=== PATIENT | female | born 1985 | race Caucasian/White ===

== ENCOUNTER 2021-06-08 15:30 | Observation (INO) ==
[2021-06-08 22:14] LABS: Hematocrit 19.3 % (35.3-44.9); Hemoglobin 6.1 g/dL (11.5-15.4); Immature Granulocytes % 0.5 % (0-4); Lymphocytes % 11.5 %; Mean Corpuscular HGB Conc 31.6 g/dL (31.6-35.5); Mean Corpuscular Hemoglobin 26.1 pg (28.0-33.3); Mean Corpuscular Volume 82.5 fL (83.0-100.0); Mean Platelet Volume 10.1 fL (9.4-12.4); Monocytes % 3.5 %; Platelet Count 300 K/mcL (140-400); Red Blood Count 2.34 M/mcL (3.82-4.97); Red Cell Distribution Width 14.5 % (11.5-14.5); Segmented Neutrophils % 83.4 %; White Blood Count 9.6 K/mcL (4.3-11.1)
[2021-06-08 22:15] LABS: Basophils % 0.1 %; Eosinophils # 0.1 K/mcL (0.0-0.6); Lymphocytes # 1.1 K/mcL (0.6-4.6); Monocytes # 0.3 K/mcL (0.0-1.3)
[2021-06-08 22:24] LABS: INR 1.2; Prothrombin Time 13.7 Seconds (9.4-12.1)
[2021-06-08 22:26] LABS: Activated Partial Thrombo Time 38.2 Seconds (26.0-36.0)
[2021-06-08 22:37] LABS: Alanine Aminotransferase 4 Units/L (7-52); Albumin 3.9 g/dL (3.5-5.7); Albumin/Globulin Ratio 1.1 (1.1-2.2); Alkaline Phosphatase 83 Units/L (34-104); Aspartate Amino Transferase 8 Units/L (13-39); BUN/Creatinine Ratio 16 (6-26); Bilirubin,Total 0.3 mg/dL (0.3-1.0); Blood Urea Nitrogen 64 mg/dL (6-20); Calcium 8.5 mg/dL (8.6-10.3); Carbon Dioxide 18 mEq/L (23-29); Chloride 107 mEq/L (98-107); Globulin 3.5 g/dL (2.4-3.5); Glucose 105 mg/dL (70-105); Osmolality,Calculated 307 (280-300); Potassium 4.1 mEq/L (3.5-5.1); Sodium 139 mEq/L (136-145); Total Protein 7.4 g/dL (6.4-8.9); Troponin I < 0.03 ng/mL (< 0.04); eGFR For African Americans 15 (> 60); eGFR For Non-African Americans 12 (> 60)
[2021-06-08] MEDS ORDERED: 0.9 % Sodium Chloride 1,000 ML ONE (23:03)
[2021-06-08] MEDS ORDERED: Ondansetron 4 MG/2 ML VIAL ONE (23:51)
[2021-06-08] MEDS ORDERED: Ondansetron 4 MG/2 ML VIAL IVP ONE (23:52)
[2021-06-09] MEDS ORDERED: *HR* HYDROcodone/Acet 5/325 mg TABLET PO PRN (01:42)
[2021-06-09] MEDS ORDERED: Melatonin 3 MG TABLET PO PRN (01:42)
[2021-06-09] MEDS ORDERED: *HR* Promethazine 25 MG/ML VIAL IM PRN (01:42)
[2021-06-09] MEDS ORDERED: Naloxone 0.4 MG/ML INJ IVP PRN (01:42)
[2021-06-09] MEDS ORDERED: Acetaminophen 325 MG TABLET PO PRN (01:42)
[2021-06-09] MEDS ORDERED: Ondansetron 4 MG/2 ML VIAL IVP PRN (01:42)
[2021-06-09 04:38] LABS: Basophils % 0.4 %; Eosinophils # 0.1 K/mcL (0.0-0.6); Eosinophils % 0.6 %; Hematocrit 22.3 % (35.3-44.9); Hemoglobin 7.4 g/dL (11.5-15.4); Immature Granulocytes % 0.4 % (0-4); Lymphocytes # 0.9 K/mcL (0.6-4.6); Lymphocytes % 8.3 %; Mean Corpuscular HGB Conc 33.2 g/dL (31.6-35.5); Mean Corpuscular Hemoglobin 27.8 pg (28.0-33.3); Mean Corpuscular Volume 83.8 fL (83.0-100.0); Mean Platelet Volume 10.5 fL (9.4-12.4); Monocytes # 0.4 K/mcL (0.0-1.3); Monocytes % 3.4 %; Neutrophils # 9.8 K/mcL (1.6-8.9); Platelet Count 292 K/mcL (140-400); Red Blood Count 2.66 M/mcL (3.82-4.97); Red Cell Distribution Width 14.6 % (11.5-14.5); Segmented Neutrophils % 86.9 %; White Blood Count 11.3 K/mcL (4.3-11.1)
[2021-06-09 04:56] LABS: Calcium 8.5 mg/dL (8.6-10.3); Potassium 3.8 mEq/L (3.5-5.1)
[2021-06-09 05:03] LABS: INR 1.2; Prothrombin Time 13.4 Seconds (9.4-12.1)
[2021-06-09] MEDS ORDERED: hydrALAZINE 25 MG TABLET PO ONE (05:12)
[2021-06-09 05:17] VITALS: BP 175/110; PULSE 97; TEMP 98.3; O2SAT 99
== END 2021-06-09 05:35 | disposition home or self-care (01) ==
LOC: EMEROOARM 15:30 → 3ANU 15:30
PROVIDERS: ADMIT Internal Medicine; ATTEND Internal Medicine

== ENCOUNTER 2021-07-28 16:07 | Inpatient (IN) ==
[2021-07-28 22:59] LABS: Basophils % 0.2 %; Eosinophils % 0.4 %; Hematocrit 28.4 % (35.3-44.9); Immature Granulocytes % 1.3 % (0-4); Lymphocytes # 0.8 K/mcL (0.6-4.6); Lymphocytes % 8.2 %; Mean Corpuscular HGB Conc 31.7 g/dL (31.6-35.5); Mean Corpuscular Volume 85.3 fL (83.0-100.0); Monocytes # 0.4 K/mcL (0.0-1.3); Monocytes % 3.7 %; Neutrophils # 8.1 K/mcL (1.6-8.9); Platelet Count 272 K/mcL (140-400); Red Blood Count 3.33 M/mcL (3.82-4.97); Red Cell Distribution Width 14.9 % (11.5-14.5); Segmented Neutrophils % 86.2 %; White Blood Count 9.4 K/mcL (4.3-11.1)
[2021-07-29 00:28] LABS: Alanine Aminotransferase 5 Units/L (7-52); Albumin 4.4 g/dL (3.5-5.7); Albumin/Globulin Ratio 1.3 (1.1-2.2); Alkaline Phosphatase 77 Units/L (34-104); Aspartate Amino Transferase 14 Units/L (13-39); BUN/Creatinine Ratio 19 (6-26); Bilirubin,Indirect 0.3 mg/dL (0.0-1.0); Bilirubin,Total 0.3 mg/dL (0.3-1.0); Blood Urea Nitrogen 107 mg/dL (6-20); Carbon Dioxide 20 mEq/L (23-29); Chloride 102 mEq/L (98-107); Globulin 3.3 g/dL (2.4-3.5); Glucose 91 mg/dL (70-105); Lipase 54 Units/L (11-82); Osmolality,Calculated 325 (280-300); Potassium 5.1 mEq/L (3.5-5.1); Sodium 141 mEq/L (136-145); Total Protein 7.7 g/dL (6.4-8.9); Troponin I < 0.03 ng/mL (< 0.04); eGFR For African Americans 10 (> 60); eGFR For Non-African Americans 8 (> 60)
[2021-07-29] MEDS ORDERED: 0.9 % Sodium Chloride 1,000 ML IV ONE (00:36)
[2021-07-29 01:19] LABS: Adenovirus Not Detected (Not Detect); Coronavirus 229E Not Detected (Not Detect); Coronavirus HKU1 Not Detected (Not Detect); Coronavirus NL63 Not Detected (Not Detect); Coronavirus OC43 Not Detected (Not Detect)
[2021-07-29 01:21] LABS: Bordetella Pertussis Not Detected (Not Detect); Chlamydophila pneumoniae Not Detected (Not Detect); Human Metapneumovirus Not Detected (Not Detect); Human Rhinovirus/Enterovirus Not Detected (Not Detect); Influenza A Subtype 2009 H1 Not Detected (Not Detect); Influenza B Not Detected (Not Detect); Mycoplasma pneumoniae Not Detected (Not Detect); Parainfluenza Virus 1 Not Detected (Not Detect); Parainfluenza Virus 2 Not Detected (Not Detect); Parainfluenza Virus 3 Not Detected (Not Detect); Parainfluenza Virus 4 Not Detected (Not Detect); Respiratory Syncytial Virus Not Detected (Not Detect); SARS-CoV-2 DETECTED (Not Detect)
[2021-07-29] MEDS ORDERED: Naloxone 0.4 MG/ML INJ IVP PRN (03:46)
[2021-07-29 05:21] LABS: Basophils % 0.3 %; Eosinophils % 0.4 %; Immature Granulocytes % 1.2 % (0-4); Lymphocytes % 14.6 %; Mean Corpuscular HGB Conc 31.7 g/dL (31.6-35.5); Mean Corpuscular Hemoglobin 27.5 pg (28.0-33.3); Mean Corpuscular Volume 86.8 fL (83.0-100.0); Monocytes # 0.3 K/mcL (0.0-1.3); Monocytes % 4.5 %; Neutrophils # 5.3 K/mcL (1.6-8.9); Platelet Count 223 K/mcL (140-400); Red Blood Count 2.65 M/mcL (3.82-4.97); Red Cell Distribution Width 14.9 % (11.5-14.5); White Blood Count 6.7 K/mcL (4.3-11.1)
[2021-07-29 05:25] LABS: Hemoglobin 7.3 g/dL (11.5-15.4)
[2021-07-29 05:58] LABS: Alanine Aminotransferase 4 Units/L (7-52); Albumin 3.5 g/dL (3.5-5.7); Albumin/Globulin Ratio 1.3 (1.1-2.2); Alkaline Phosphatase 61 Units/L (34-104); Aspartate Amino Transferase 9 Units/L (13-39); BUN/Creatinine Ratio 19 (6-26); Bilirubin,Total 0.2 mg/dL (0.3-1.0); Blood Urea Nitrogen 102 mg/dL (6-20); Calcium 7.9 mg/dL (8.6-10.3); Carbon Dioxide 18 mEq/L (23-29); Chloride 104 mEq/L (98-107); Globulin 2.8 g/dL (2.4-3.5); Glucose 83 mg/dL (70-105); Magnesium 1.5 mg/dL (1.6-2.6); Osmolality,Calculated 319 (280-300); Phosphorous 5.8 mg/dL (2.7-4.5); Potassium 4.5 mEq/L (3.5-5.1); Sodium 139 mEq/L (136-145); Total Protein 6.3 g/dL (6.4-8.9); Troponin I < 0.03 ng/mL (< 0.04); eGFR For African Americans 11 (> 60); eGFR For Non-African Americans 9 (> 60)
[2021-07-29] MEDS: Ondansetron 4 MG/2 ML VIAL IVP PRN (07:28)
[2021-07-29] MEDS ORDERED: Albuterol 2.5 MG/3 ML NEBULIZER IH PRN (07:41)
[2021-07-29] MEDS ORDERED: Sodium Bicarbonate 75 MEQ in 0.45 % Sodium Chloride 1,000 ML IVC SCH (07:45)
[2021-07-29 11:04] LABS: Hematocrit 24.4 % (35.3-44.9); Hemoglobin 7.5 g/dL (11.5-15.4); Mean Corpuscular HGB Conc 30.7 g/dL (31.6-35.5); Mean Corpuscular Hemoglobin 26.7 pg (28.0-33.3); Mean Corpuscular Volume 86.8 fL (83.0-100.0); Mean Platelet Volume 9.6 fL (9.4-12.4); Platelet Count 213 K/mcL (140-400); Red Blood Count 2.81 M/mcL (3.82-4.97); White Blood Count 6.9 K/mcL (4.3-11.1)
[2021-07-29] MEDS: Ipratropium 1 PUFF INHALER IH SCH ×5 (11:15→23:40)
[2021-07-29 16:45] LABS: Hepatitis B Surface Antibody < 3.10 mIU/mL
[2021-07-29 16:56] LABS: Hepatitis B Surface Antigen Nonreactive (Nonreactive)
[2021-07-29] MEDS: *HR* Heparin 5,000 UNIT/ML VIAL SQ SCH (17:13)
[2021-07-29] MEDS: mycophenolate mofetiL 250 MG CAPSULE PO SCH (20:14)
[2021-07-29] MEDS: Acetaminophen 325 MG TABLET PO PRN (20:22)
[2021-07-29] MEDS: hydrOXYzine pamoate 25 MG CAPSULE PO PRN (21:17)
[2021-07-30] MEDS: Ondansetron 4 MG/2 ML VIAL IVP PRN ×2 (01:51→14:18)
[2021-07-30] MEDS: hydrOXYzine pamoate 25 MG CAPSULE PO PRN (02:51)
[2021-07-30] MEDS: Melatonin 3 MG TABLET PO PRN (02:51)
[2021-07-30] MEDS: Ipratropium 1 PUFF INHALER IH SCH ×4 (04:11→11:06)
[2021-07-30] MEDS ORDERED: *HR* Promethazine 25 MG/ML VIAL IM ONE (04:12)
[2021-07-30 04:15] LABS: Basophils % 0.2 %; Eosinophils # 0.1 K/mcL (0.0-0.6); Eosinophils % 0.4 %; Hematocrit 25.1 % (35.3-44.9); Hemoglobin 7.8 g/dL (11.5-15.4); Lymphocytes # 1.1 K/mcL (0.6-4.6); Lymphocytes % 8.9 %; Mean Corpuscular HGB Conc 31.1 g/dL (31.6-35.5); Mean Corpuscular Hemoglobin 26.9 pg (28.0-33.3); Mean Corpuscular Volume 86.6 fL (83.0-100.0); Mean Platelet Volume 9.8 fL (9.4-12.4); Monocytes # 0.4 K/mcL (0.0-1.3); Monocytes % 3.1 %; Platelet Count 250 K/mcL (140-400); Segmented Neutrophils % 86.4 %
[2021-07-30 04:19] LABS: Neutrophils # 10.5 K/mcL (1.6-8.9); White Blood Count 12.1 K/mcL (4.3-11.1)
[2021-07-30 04:39] LABS: Calcium 8.3 mg/dL (8.6-10.3); Magnesium 2.3 mg/dL (1.6-2.6); Phosphorous 6.2 mg/dL (2.7-4.5); Potassium 4.7 mEq/L (3.5-5.1)
[2021-07-30] MEDS: *HR* Heparin 5,000 UNIT/ML VIAL SQ SCH ×2 (04:49→17:19)
[2021-07-30] MEDS ORDERED: 0.9 % Sodium Chloride 250 ML IVC PRN (08:02)
[2021-07-30] MEDS ORDERED: *HR* Heparin 10,000 UNIT/10 ML VIAL IV PRN (08:02)
[2021-07-30] MEDS ORDERED: 0.9 % Sodium Chloride 1,000 ML PRIME SCH (08:15)
[2021-07-30] MEDS ORDERED: amLODIPine 5 MG TABLET PO SCH (09:00)
[2021-07-30] MEDS: ARIPiprazole 10 MG TABLET PO SCH (10:12)
[2021-07-30] MEDS: mycophenolate mofetiL 250 MG CAPSULE PO SCH ×2 (10:12→20:14)
[2021-07-30] MEDS: Acetaminophen 325 MG TABLET PO PRN ×2 (10:13→20:18)
[2021-07-30] MEDS: Cyanocobalamin (B-12) 1,000 MCG TABLET PO SCH (10:13)
[2021-07-30] MEDS: amLODIPine 5 MG TABLET PO SCH (10:13)
[2021-07-30] MEDS: calcitrioL 0.25 MCG CAPSULE PO SCH (10:13)
[2021-07-30] MEDS ORDERED: Heparin 1,000 UNITS/500 mL 500 ML ONE (11:10)
[2021-07-30] MEDS ORDERED: *HR* FentaNYL (PF) 100 MCG/2 ML VIAL IVP ONE (11:11)
[2021-07-30] MEDS ORDERED: *HR* Midazolam HCl 2 MG/2 ML VIAL IVP ONE (11:12)
[2021-07-30] MEDS ORDERED: 0.9 % Sodium Chloride 500 ML ONE (11:19)
[2021-07-30] MEDS ORDERED: *HR* FentaNYL (PF) 100 MCG/2 ML VIAL ONE (11:22)
[2021-07-30] MEDS ORDERED: *HR* Midazolam HCl 2 MG/2 ML VIAL ONE (11:22)
[2021-07-30] MEDS ORDERED: *HR* Heparin 5,000 UNIT/ML VIAL ONE (11:28)
[2021-07-30] MEDS: ceFAZolin 1,000 MG in 0.9 % Sodium Chloride Mini Bag 100 ML IVPB SCH (11:33)
[2021-07-30] MEDS ORDERED: Ipratropium 1 PUFF INHALER IH PRN (14:55)
[2021-07-31] MEDS: hydrOXYzine pamoate 25 MG CAPSULE PO PRN (01:05)
[2021-07-31] MEDS: Ondansetron 4 MG/2 ML VIAL IVP PRN ×3 (02:40→20:01)
[2021-07-31] MEDS: Acetaminophen 325 MG TABLET PO PRN ×3 (02:42→19:51)
[2021-07-31] MEDS: *HR* HYDROcodone/Acet 5/325 mg TABLET PO PRN ×3 (05:08→23:11)
[2021-07-31] MEDS: *HR* Heparin 5,000 UNIT/ML VIAL SQ SCH ×2 (05:08→16:06)
[2021-07-31 06:05] LABS: Basophils % 0.2 %; Eosinophils % 0.2 %; Hematocrit 21.6 % (35.3-44.9); Immature Granulocytes % 0.9 % (0-4); Lymphocytes # 0.9 K/mcL (0.6-4.6); Lymphocytes % 9.9 %; Mean Corpuscular HGB Conc 32.4 g/dL (31.6-35.5); Mean Corpuscular Hemoglobin 27.5 pg (28.0-33.3); Mean Corpuscular Volume 84.7 fL (83.0-100.0); Mean Platelet Volume 10.4 fL (9.4-12.4); Monocytes # 0.4 K/mcL (0.0-1.3); Monocytes % 3.8 %; Neutrophils # 8.1 K/mcL (1.6-8.9); Platelet Count 228 K/mcL (140-400); Red Blood Count 2.55 M/mcL (3.82-4.97); Red Cell Distribution Width 15.1 % (11.5-14.5); White Blood Count 9.5 K/mcL (4.3-11.1)
[2021-07-31 06:10] LABS: % Iron Saturation 23 % (15-50); Calcium 8.3 mg/dL (8.6-10.3); Iron 43 mcg/dL (50-170); Phosphorous 5.6 mg/dL (2.7-4.5); Potassium 3.8 mEq/L (3.5-5.1); Transferrin 134 mg/dL (203-362)
[2021-07-31 06:28] LABS: Ferritin 1326 ng/mL (10-120)
[2021-07-31] MEDS ORDERED: 0.9 % Sodium Chloride 250 ML IVC PRN (07:50)
[2021-07-31] MEDS ORDERED: *HR* Heparin 10,000 UNIT/10 ML VIAL IV PRN (07:50)
[2021-07-31] MEDS: amLODIPine 5 MG TABLET PO SCH (08:35)
[2021-07-31] MEDS: mycophenolate mofetiL 250 MG CAPSULE PO SCH ×2 (08:36→19:51)
[2021-07-31] MEDS: Cyanocobalamin (B-12) 1,000 MCG TABLET PO SCH (08:36)
[2021-07-31] MEDS: calcitrioL 0.25 MCG CAPSULE PO SCH (08:36)
[2021-07-31] MEDS: ARIPiprazole 10 MG TABLET PO SCH (08:37)
[2021-07-31] MEDS: ceFAZolin 1,000 MG in 0.9 % Sodium Chloride Mini Bag 100 ML IVPB SCH (09:52)
[2021-07-31] MEDS: hydrALAZINE 25 MG TABLET PO SCH ×2 (16:05→23:11)
[2021-07-31] MEDS: Melatonin 3 MG TABLET PO PRN (23:11)
[2021-08-01] MEDS: Acetaminophen 325 MG TABLET PO PRN (03:44)
[2021-08-01] MEDS: *HR* HYDROcodone/Acet 5/325 mg TABLET PO PRN ×3 (05:10→20:30)
[2021-08-01] MEDS: *HR* Heparin 5,000 UNIT/ML VIAL SQ SCH ×2 (05:10→16:27)
[2021-08-01 06:01] LABS: Calcium 8.8 mg/dL (8.6-10.3); Phosphorous 4.2 mg/dL (2.7-4.5); Potassium 3.8 mEq/L (3.5-5.1)
[2021-08-01 06:04] LABS: Hematocrit 24.2 % (35.3-44.9); Hemoglobin 7.6 g/dL (11.5-15.4)
[2021-08-01] MEDS: ARIPiprazole 10 MG TABLET PO SCH (08:34)
[2021-08-01] MEDS: calcitrioL 0.25 MCG CAPSULE PO SCH (08:35)
[2021-08-01] MEDS: mycophenolate mofetiL 250 MG CAPSULE PO SCH ×2 (08:35→20:14)
[2021-08-01] MEDS: Cyanocobalamin (B-12) 1,000 MCG TABLET PO SCH (08:35)
[2021-08-01] MEDS: amLODIPine 5 MG TABLET PO SCH (08:35)
[2021-08-01] MEDS: hydrALAZINE 25 MG TABLET PO SCH ×2 (08:35→16:27)
[2021-08-01] MEDS: Ondansetron 4 MG/2 ML VIAL IVP PRN (16:27)
[2021-08-02] MEDS: Acetaminophen 325 MG TABLET PO PRN ×2 (01:21→15:33)
[2021-08-02] MEDS: hydrALAZINE 25 MG TABLET PO SCH ×3 (01:22→16:41)
[2021-08-02 02:22] LABS: Basophils % 0.3 %; Eosinophils # 0.1 K/mcL (0.0-0.6); Eosinophils % 1.1 %; Hematocrit 22.4 % (35.3-44.9); Hemoglobin 6.9 g/dL (11.5-15.4); Immature Granulocytes % 2.2 % (0-4); Lymphocytes # 0.8 K/mcL (0.6-4.6); Lymphocytes % 12.6 %; Mean Corpuscular HGB Conc 30.8 g/dL (31.6-35.5); Mean Corpuscular Hemoglobin 26.7 pg (28.0-33.3); Mean Corpuscular Volume 86.8 fL (83.0-100.0); Mean Platelet Volume 10.5 fL (9.4-12.4); Monocytes # 0.4 K/mcL (0.0-1.3); Monocytes % 6.5 %; Neutrophils # 4.9 K/mcL (1.6-8.9); Platelet Count 179 K/mcL (140-400); Red Blood Count 2.58 M/mcL (3.82-4.97); Red Cell Distribution Width 15.1 % (11.5-14.5); Segmented Neutrophils % 77.3 %; White Blood Count 6.3 K/mcL (4.3-11.1)
[2021-08-02 02:44] LABS: Calcium 8.5 mg/dL (8.6-10.3); Phosphorous 4.9 mg/dL (2.7-4.5); Potassium 3.8 mEq/L (3.5-5.1)
[2021-08-02] MEDS: *HR* Heparin 5,000 UNIT/ML VIAL SQ SCH ×2 (05:11→16:41)
[2021-08-02] MEDS: Cyanocobalamin (B-12) 1,000 MCG TABLET PO SCH (07:57)
[2021-08-02] MEDS: ARIPiprazole 10 MG TABLET PO SCH (07:57)
[2021-08-02] MEDS: mycophenolate mofetiL 250 MG CAPSULE PO SCH ×2 (07:58→20:36)
[2021-08-02] MEDS: amLODIPine 5 MG TABLET PO SCH (07:58)
[2021-08-02] MEDS: calcitrioL 0.25 MCG CAPSULE PO SCH (07:58)
[2021-08-02 08:00] LABS: Hematocrit 24.5 % (35.3-44.9); Hemoglobin 7.8 g/dL (11.5-15.4)
[2021-08-02] MEDS: *HR* HYDROcodone/Acet 5/325 mg TABLET PO PRN ×2 (09:05→18:17)
[2021-08-02 11:30] LABS: Mycophenolic Acid 1.7 ug/mL (1.0-3.5); Mycophenolic Acid Glucuronide 120.1 ug/mL (35.0-100.0)
[2021-08-02 14:41] LABS: Bacteria,Urine Few per hpf (None-Few); Bilirubin,Urine Negative (Negative); Blood,Urine Moderate (Negative); Clarity,Urine Turbid (Clear); Color,Urine Light-Orange (Yellow); Glucose,Urine (UA) Normal (Normal); Hyaline Casts,Urine Few per lpf (None Seen); Ketones,Urine 10 mg/dL (Negative); Leukocyte Esterase,Urine Moderate (Negative); Mucus,Urine Few per lpf (None-Few); Nitrite,Urine Negative (Negative); Protein,Urine >=300 mg/dL (Neg-Trace); RBC,Urine 15-30 per hpf (0-3); Specific Gravity,Urine 1.015 (1.010-1.025); Squamous Epithelial Cell,Urine Few per hpf (None-Few); Urobilinogen,Urine Normal (Normal); WBC,Urine 50-100 per hpf (0-3)
[2021-08-03] MEDS: hydrALAZINE 25 MG TABLET PO SCH ×3 (00:38→17:53)
[2021-08-03] MEDS: Melatonin 3 MG TABLET PO PRN (00:41)
[2021-08-03 02:25] LABS: Calcium 8.4 mg/dL (8.6-10.3); Phosphorous 4.2 mg/dL (2.7-4.5); Potassium 3.9 mEq/L (3.5-5.1)
[2021-08-03] MEDS: *HR* Heparin 5,000 UNIT/ML VIAL SQ SCH ×2 (05:12→17:54)
[2021-08-03] MEDS: *HR* HYDROcodone/Acet 5/325 mg TABLET PO PRN ×2 (05:15→20:16)
[2021-08-03] MEDS ORDERED: 0.9 % Sodium Chloride 250 ML IVC PRN (07:23)
[2021-08-03] MEDS ORDERED: *HR* Heparin 10,000 UNIT/10 ML VIAL IV PRN (07:46)
[2021-08-03] MEDS: ARIPiprazole 10 MG TABLET PO SCH (08:38)
[2021-08-03] MEDS: mycophenolate mofetiL 250 MG CAPSULE PO SCH ×2 (08:38→20:07)
[2021-08-03] MEDS: hydrOXYzine pamoate 25 MG CAPSULE PO PRN (08:38)
[2021-08-03] MEDS: amLODIPine 5 MG TABLET PO SCH (08:39)
[2021-08-03] MEDS: Cyanocobalamin (B-12) 1,000 MCG TABLET PO SCH (08:40)
[2021-08-03] MEDS: calcitrioL 0.25 MCG CAPSULE PO SCH (08:40)
[2021-08-03 12:06] LABS: Hematocrit 22.8 % (35.3-44.9); Hemoglobin 7.4 g/dL (11.5-15.4)
[2021-08-03] MEDS: Acetaminophen 325 MG TABLET PO PRN (13:11)
[2021-08-03] MEDS: Cefdinir 300 MG CAPSULE PO SCH ×2 (15:28→20:07)
[2021-08-04] MEDS: hydrALAZINE 25 MG TABLET PO SCH ×2 (00:20→08:14)
[2021-08-04 01:43] LABS: Basophils # 0.1 K/mcL (0.0-0.2); Basophils % 0.7 %; Eosinophils % 0.1 %; Hematocrit 25.3 % (35.3-44.9); Hemoglobin 7.9 g/dL (11.5-15.4); Immature Granulocytes % 2.9 % (0-4); Lymphocytes # 0.9 K/mcL (0.6-4.6); Lymphocytes % 12.3 %; Mean Corpuscular HGB Conc 31.2 g/dL (31.6-35.5); Mean Corpuscular Hemoglobin 26.4 pg (28.0-33.3); Mean Corpuscular Volume 84.6 fL (83.0-100.0); Mean Platelet Volume 10.4 fL (9.4-12.4); Monocytes # 0.3 K/mcL (0.0-1.3); Monocytes % 4.9 %; Neutrophils # 5.5 K/mcL (1.6-8.9); Platelet Count 213 K/mcL (140-400); Red Blood Count 2.99 M/mcL (3.82-4.97); Red Cell Distribution Width 14.7 % (11.5-14.5); Segmented Neutrophils % 79.1 %; White Blood Count 6.9 K/mcL (4.3-11.1)
[2021-08-04 02:00] LABS: Phosphorous 3.9 mg/dL (2.7-4.5); Potassium 3.7 mEq/L (3.5-5.1)
[2021-08-04] MEDS: *HR* Heparin 5,000 UNIT/ML VIAL SQ SCH (05:16)
[2021-08-04] MEDS: Ondansetron 4 MG/2 ML VIAL IVP PRN (05:16)
[2021-08-04 06:44] VITALS: BP 124/83; PULSE 99; TEMP 99.4; O2SAT 96
[2021-08-04] MEDS: Acetaminophen 325 MG TABLET PO PRN (08:13)
[2021-08-04] MEDS: mycophenolate mofetiL 250 MG CAPSULE PO SCH (08:13)
[2021-08-04] MEDS: calcitrioL 0.25 MCG CAPSULE PO SCH (08:14)
[2021-08-04] MEDS: ARIPiprazole 10 MG TABLET PO SCH (08:14)
[2021-08-04] MEDS: Cefdinir 300 MG CAPSULE PO SCH (08:14)
[2021-08-04] MEDS: Cyanocobalamin (B-12) 1,000 MCG TABLET PO SCH (08:14)
[2021-08-04] MEDS: amLODIPine 5 MG TABLET PO SCH (08:14)
[2021-08-05] MEDS ORDERED: Cefdinir 300 MG CAPSULE PO SCH (21:00)
== END 2021-08-04 14:36 | disposition home or self-care (01) | DRG 682 ==
LOC: 2ANU 16:07 → EMEROOARM 16:07 → SUATTDRO 07-29 01:54 → 2ANU 07-29 02:30 → 2NENU 07-29 18:48
PROVIDERS: ADMIT Internal Medicine; ATTEND Internal Medicine
PROC: IRPERMA (2021-07-30 12:00)